=== PATIENT | male | born 1970 | race American Indian/Alaskan Native ===

== ENCOUNTER 2017-10-19 08:21 | Emergency (ER) | payer BC, OTHER ==
[2017-10-19 08:58] VITALS: RESP 18
[2017-10-19] MEDS: Dexamethasone 10 MG in Dextrose 5% In Water 50 ML IM ONE ×2 (09:25→09:46)
[2017-10-19] MEDS ORDERED: Dexamethasone 4 mg/1 ml IM STA (09:44)
--- NOTE | 2017-10-19 10:03 | C.PDOC ---
History Of Present Illness 47 y/o male presents to ED for complaints of non productive cough that began his morning. Patient states he "felt the thing on the roof of my mouth came out. " Patient reports he feels like he is chocking on something. Denies fever, dyspnea, sore throat or any other physical complaints. Time Seen by Provider: 10/19/17 08:45 Chief Complaint (Nursing): ENT Problem History Per: Patient History/Exam Limitations: no limitations Onset/Duration Of Symptoms: Hrs Current Symptoms Are (Timing): Still Present Recent travel outside of the [place]: No Past Medical History Reviewed: Historical Data, Nursing Documentation, Vital Signs Vital Signs: Last Vital Signs Temp 98.2 F 10/19/17 11:35 Pulse 90 10/19/17 11:35 Resp 18 10/19/17 11:35 BP 198/122 H 10/19/17 11:35 Pulse Ox 96 10/19/17 14:27 - Medical History PMH: HTN Surgical History: No Surg Hx Family History: States: No Known Family Hx - Social History Hx Alcohol Use: No Hx Substance Use: No - Immunization History Hx Tetanus Toxoid Vaccination: No Hx Influenza Vaccination: No Hx Pneumococcal Vaccination: No Review Of Systems Constitutional: Negative for: Fever, Chills ENT: Negative for: Throat Pain Cardiovascular: Negative for: Chest Pain Respiratory: Positive for: Cough. Negative for: Shortness of Breath Gastrointestinal: Negative for: Nausea, Vomiting, Abdominal Pain, Diarrhea Skin: Negative for: Rash Neurological: Negative for: Weakness, Numbness Physical Exam - Physical Exam Appears: Well, Non-toxic, No Acute Distress Skin: Normal Color, Warm, Dry, No Rash Head: Atraumatic, Normacephalic Eye(s): bilateral: Normal Inspection, PERRL, EOMI Oral Mucosa: Moist Throat: Erythema (Mild to oropharynx), Other (Uvular swelling; No Uvular deviation; No trismus) Neck: Normal ROM, Supple Chest: Symmetrical, No Tenderness Cardiovascular: Rhythm Regular, No Murmur Respiratory: Normal Breath Sounds, No Decreased Breath Sounds, No Rales, No Rhonchi, No Stridor, No Wheezing, No Other (Respiratory distress ) Gastrointestinal/Abdominal: Soft, No Tenderness Extremity: Normal ROM, No Deformity Extremity: Bilateral: Atraumatic, Normal Color And Temperature, Normal ROM Neurological/Psych: Oriented x3, Normal Speech (Speaking in full sentences ), Other (No focal deficits ) Gait: Steady ED Course And Treatment O2 Sat by Pulse Oximetry: 96 (RA) Pulse Ox Interpretation: Normal Medical Decision Making Medical Decision Making: Administered Decadron injection. Ordered Rapid Strep, throat culture, and blood work. Rapid strep negative. Patient reported some minimal improvement after decadron injection. Advised supportive care (NSAIDs, salt water gargles, etc) for pharyngitis. Patient concerned that his uvula has become detached from his pharynx, advised him that this is not the case. Patient given a refill of his antihypertensive medication as he ran out and his BP was elevated here in the ED. One dose given prior to discharge. Disposition - Disposition Disposition: HOME/ ROUTINE Disposition Time: 11:59 Condition: GOOD Additional Instructions: NURY CHRISTIANSEN, thank you for letting us take care of you today. Your provider was Glenna Leon MD and you were treated for THROAT PAIN. The emergency medical care you received today was directed at your acute symptoms. If you were prescribed any medication, please fill it and take as directed. It may take several days for your symptoms to resolve. Return to the Emergency Department if your symptoms worsen, do not improve, or if you have any other problems. Please contact your doctor or call one of the physicians/clinics you have been referred to that are listed on the Patient Visit Information form that is included in your discharge packet. Bring any paperwork you were given at discharge with you along with any medications you are taking to your follow up visit. Our treatment cannot replace ongoing medical care by a primary care provider outside of the emergency department. Thank you for allowing the [facility] team to be part of your care today. If you had an X-Ray or CT scan: A Radiologist will review the ED reading if any change in treatment is needed we will contact you. If you had a blood, urine, or wound culture: It will take several days for the results, if any change in treatment is needed we will contact you. If you had an STI test: It will take 48 hours for the results. Please call after 1 week if you have not heard back. Prescriptions: Amlodipine/Valsartan/Hcthiazid [Semvc-[id number] 10-320-25 mg] 1 tab PO DAILY # 14 tablet Instructions: Viral Pharyngitis (DC) Forms: [facility] (Bel[place]ian) - Clinical Impression Clinical Impression: Uvular swelling - Scribe Statement The provider has reviewed the documentation as recorded by the Scribe Jneny Sebastian All medical record entries made by the Scribe were at my direction and personally dictated by me. I have reviewed the chart and agree that the record accurately reflects my personal performance of the history, physical exam, medical decision making, and the department course for this patient. I have also personally directed, reviewed, and agree with the discharge instructions and disposition.[email or web address]
[2017-10-19 11:44] VITALS: BP 198/122; PULSE 90; TEMP 98.2
[2017-10-19 14:27] VITALS: O2SAT 96
== END 2017-10-19 12:00 | disposition home or self-care (01) ==
LOC: C.ER 08:21
DX: J39.8 Other specified diseases of upper respiratory tract (principal); I10 Essential (primary) hypertension
CPT/HCPCS: 82948; 87070; 87430; 96372; 99284; J1100